=== PATIENT | female | born 1945 | race Caucasian/White ===

== ENCOUNTER → 2017-11-25 | Outpatient (CLI) | payer MEDICARE, MEDICAID | END | disposition home or self-care (01) | LOC: CFH 13:19 | PROVIDERS: ATTEND Nurse Practitioner Family | DX: M25.78 Osteophyte, vertebrae (principal) | CPT/HCPCS: 72141 ==

== ENCOUNTER → 2018-10-02 | Outpatient (CLI) | payer MEDICARE, MEDICAID | END | disposition home or self-care (01) | LOC: EDSTATUS 08-30 10:15 → CFH 13:59 | PROVIDERS: ATTEND Family Medicine | DX: N64.4 Mastodynia (principal); R92.2 Inconclusive mammogram | CPT/HCPCS: 76642; 77066; G0279 ==